=== PATIENT | female | born 1945 | race Caucasian/White ===

== ENCOUNTER 2020-12-04 13:49 | Inpatient (IN) | payer MEDICARE, OTHER, SELFPAY ==
[2020-12-04] VITALS (56 sets, daily range): BP systolic 103–171; BP diastolic 59–111; PULSE 60–107; RESP 6–25; TEMP 36.6; O2SAT 91–100; BMI 31.7
[2020-12-04] MEDS: heparin 5,000 unit/mL INJ 1 mL 4000 UNIT IVP (13:55)
[2020-12-04] MEDS: clopidogrel 300 mg Tablet 600 MG PO (13:55)
[2020-12-04] MEDS: morphine 4 mg/mL SDV 1 mL 6 MG IVP (13:57)
[2020-12-04] MEDS: ondansetron 2 mg/ML SDV 2 mL 4 MG IVP (13:57)
--- NOTE | 2020-12-04 13:58 | XACV_ITS ---
Ht: 163 cm Wt: 84 kg BSA: 1.98 m2 Gender: Female : 1945 Any Known Allergies: Iodine Exam Priority: Routine Procedure(s): Procedure Description: Diagnostic procedure Procedure Description: PCI procedure Procedure Description: Left Heart Catheterization Procedure Description: Drug Eluting Coronary Stent Procedure Description: PTCA Procedure Description: Miscellaneous Procedure Description: ACT Procedure Description: Coronary Angiography Diagnostic Cath Status: Emergency Diagnostic Findings * CX is a large vessel. It gives rise to 4 OM branches, no significant stenosis is seen. * There is a proximal LAD stent. Prior stent has a 40% instent restenosis. Mid Left Anterior Descending Coronary Artery: Severe 99% stenosis, MAREK: 1 flow. This is the culprit lesion for the STEMI. * RCA is a small vessel. Mid Right Coronary Artery: Severe 99% stenosis, MAREK: 0 flow. * LM has 0% stenosis. * Coronary angiography shows left dominance. PCI Status: Emergency PCI Indication: STEMI - Immediate PCI for STEMI Interventional Findings * We engaged the left main artery using XB 3.5 guide catheter. We predilated the stenosis using a 2.5 x 8 mm semicompliant balloon. This was followed by placement of 2.75 x 22 mm drug-eluting stent. We then used a 3.0 x 12 mm NC balloon to dilate to the in-stent restenosis and prior proximal stent. There was minimal in-stent restenosis after balloon dilation of the old stent. At this time final angiogram was performed that showed excellent stent expansion, no residual stenosis and MAREK-3 flow. Guidewire and guide catheter were removed. We then turned our attention to mid RCA stenosis. JR4 guide catheter was used to engage the right coronary artery. We used a 0.014 cougar guidewire to cross mid RCA stenosis. However stent could not be advanced as there was not enough support. We switched to AL 0.75 guide catheter. Guidewire was used to cross the stenosis and placed 2.5 x 12 mm resolute [place] HARMAN to mid RCA. Guidewire was removed and final angiogram was performed that showed excellent stent expansion, MAREK-3 flow and no residual stenosis. Guide catheter was removed. Femoral access sheath was sutured in place for removal later. Patient left the Pipe Organ Technician in a stable condition.. * Mid Left Anterior Descending Coronary Artery: 99% stenosis treated with AB TREK 2.50X8 RX BALLOON, MDT R HEATHER 2.75X22 HARMAN, and MDT NC EUPHORA RX [id number] BALLOON. 0% residual stenosis, MAREK: 3 flow. * Mid Right Coronary Artery: 99% stenosis treated with MDT R HEATHER 2.5X12 HARMAN. 0% residual stenosis, MAREK: 3 flow. Conclusions 1. There is severe coronary artery disease with two vessel disease. 2. Mid Left Anterior Descending Coronary Artery was treated with two Balloon and Drug Eluting Stent. 3. Mid Right Coronary Artery was treated with Drug Eluting Stent. Recommendations * Admit to CSU. * Aspirin and Plavix. * High intensity statin therapy. * Metoprolol and Lisinopril. * Order echocardiogram. Interventional RX Recommendation: PCI w/o planned CABG Diagnostic RX Recommendation: PCI w/o planned CABG Anticoagulation: Heparin Pressures Phase:Rest AO : 140 / 73 ( 103 ) @ 8:15:00 AM 177 / 64 ( 96 ) @ 8:20:00 AM 154 / 46 ( 81 ) @ 8:22:00 AM 104 / 69 ( 79 ) @ 8:54:00 AM 100 / 61 ( 80 ) @ 8:54:00 AM Clinical Evaluation EBL: 5mL-10mL Procedural Details Pre-Procedure Time Out. Identified patient by full name and date of as verbalized by the patient/guarantor. Does the consent match the physician's order: Yes. Accurate & Complete Informed Consent: N/A Emergent. Inpatient/Outpatient History & Physical on Chart: N/A Emergent. If H&P is completed, is and addenduem needed: N/A Emergent; If yes, is the addendum complete: N/A Emergent. Visualize and Verify Site with Patient/Guarantor: N/A. Relevant Radiology Images available: N/A Emergent. Pre-op teaching completed and patient verbalized understanding. The risks, benefits, and alternatives of sedation and/or procedure were discussed by physician. The patient agrees to continue. Procedure started. [facility] Clinical Fraility Score: 4: Vulnerable. Pipe Organ Technician Indications: ACS <= 24 hours. Chest Pain Symptom Assessment: Typical Angina Symptoms. Cardiovascular Instability: Yes, if yes, Persistant Ischemic Symptoms. Correct patient, site and procedure confirmed by cath team. Current diagnosis: STEMI. PERRLA. Strong, equal hand edi architect bilaterally. Lungs clear x 5 lobes. IV Site on Arrival: 18 gauge in the left anticubital. IV Fluids: 0.9% NaCl at KVO. 0 mL infused prior to propagator laborer. Pre Procedural Pulses: bilateral dorsalis pedis was 2+. Oxygen started at 2liters/min via nasal canula. bilateral groins was prepped with chloroprep then draped in the usual sterile fashion. Baseline sample Acquired. HR: 81 BPM. Physician arrived. Physician scrubbed in. Immediate Pre-Procedure Time Out. Correct Patient: N/A Emergent; Correct Procedure: N/A Emergent; Correct Site: N/A Emergent; Correct Patient Position: N/A Emergent; Correct Supplies: N/A Emergent; Dried Flammable Prep: N/A Emergent; Blood Products Available: N/A Emergent;. Lidocaine 1% infiltrated to the left groin. Current Diagnosis : STEMI. Arterial access obtained with micropuncture set. Sheath upsized to a 6 Fr. A 5 lithuanian JR4 catheter in over wire. Multiple views taken of right coronary artery. Catheter removed over the exchange wire. A 5 lithuanian JL4 catheter in over wire. Multiple views taken of left coronary artery. Catheter removed over the standard wire. 6 lithuanian XB 3.5 guide catheter was inserted over the wire. Bowie guidewire was advanced through the guide catheter to lesion in the mid LAD. Family updated. Inflation number : 1 A AB TREK 2.50X8 RX BALLOON was prepped and advanced across the Mid LAD , then inflated to 8 JOSE for 0:09 seconds. Inflation number: 2 The AB TREK 2.50X8 RX BALLOON was reinflated across the Mid LAD, to 12 JOSE for 0:25 seconds. Balloon out. Inflation Number : 3 A MDT R HEATHER 2.75X22 HARMAN -Lot Number# [id number] exp date 04/20/2022 was prepped and advanced across the Mid LAD. The stent was deployed at 14 JOSE for 0:26 seconds. Inflation number: 4 The stent balloon was then re-inflated across the Mid LAD to 12 JOSE for 0:15 seconds. Stent balloon out over wire. Results checked. Family updated. Inflation number : 5 A MDT NC EUPHORA RX 3.78V81BO BALLOON was prepped and advanced across the Mid LAD , then inflated to 16 JOSE for 0:21 seconds. Inflation number: 6 The MDT NC EUPHORA RX [id number] BALLOON was reinflated across the Mid LAD, to 18 JOSE for 0:16 seconds. Balloon out. Wire out. Guide catheter out. 6 lithuanian JR 4 guide catheter was inserted over the wire. Bowie guidewire was advanced through the guide catheter to lesion in the mid RCA. Wire out. Guide catheter out. Inventory is CRD 6FR AL .75 GUIDE. 6 lithuanian AL 0.75 guide catheter was inserted over the wire. Bowie guidewire was advanced through the guide catheter to lesion in the mid RCA. Inflation Number : 1 A MDT R HEATHER 2.5X12 HARMAN -Lot Number# [id number] exp date 08/07/2022 was prepped and advanced across the Mid RCA. The stent was deployed at 9 JOSE for 0:32 seconds. Results checked. Stent balloon out over wire. Wire out. Long sheath exchanged for short 6 fr sheath. ACT drawn. Results 218 seconds. Therapeutic limits - pre-heparin administration 90-150 seconds and monitoring heparin during a vascular procedure >250 seconds. Physician scrubbed out. Critical Trop resulted to Dr Ramirez. Trop 328. A Suture was successful obtaining hemostatsis at the Left Femoral artery insertion site. Sheath(s) sutured into position with 2-0 silk and sterile 4x4's and Op-site applied over the site. No oozing or signs and symptoms of hematoma noted. Arterial sheath flushed and connected to tranducer and pressure bag with heparinized saline. Post Procedure: Pulses reassessed and unchanged. PERRLA. Strong, equal hand edi architect bilaterally. No VTE prophylaxis required. Medication's Wasted: Lidocaine 1% = 12 mL. Medication's Wasted: Heparin = 2000 units. Total IV fluids: 100 mL. Contrast type used: Omnipaque 300 mgI/mL, 500 mL bottle. Post-op diagnosis: stemi. PCI Indication: STEMI. Complications: none. Estimated blood loss: 5mL-10mL. Procedure completed. Patient transferred by bed to 1st floor. Abril Jordan RT(R) was relieved by Trey Jenkins RRT as monitoring person. Access Site Site: Left Femoral artery Sheath Size: 6 Fr Hemostasis Method: Suture Hemostasis Success: Successful Procedure Medications Start: 2:06 PM Stop: 2:06 PM Medication: Versed Amount: 1 mg Route: I.V. Start: 2:07 PM Stop: 2:07 PM Medication: Versed Amount: 1 mg Route: I.V. Start: 2:15 PM Stop: 2:15 PM Medication: Heparin Amount: 4000 units Route: I.V. Start: 2:19 PM Stop: 2:19 PM Medication: Versed 1 mg and Fentanyl 25 mcg Amount: 1 Route: I.V. Start: 2:26 PM Stop: 2:26 PM Medication: Versed Amount: 1 mg Route: I.V. Start: 2:39 PM Stop: 2:39 PM Medication: Versed Amount: 1 mg Route: I.V. Start: 2:51 PM Stop: 2:51 PM Medication: Heparin Amount: 2000 units Route: I.V. Start: 2:52 PM Stop: 2:52 PM Medication: Versed Amount: 1 mg Route: I.V. Start: 3:01 PM Stop: 3:01 PM Medication: Heparin Amount: 1000 units Route: I.V. I, the attending physician, have reviewed and verified all procedure medications. Yes, all medications given per verbal order History/Risk Factors Hypertension: No Dyslipidemia: No Peripheral Arterial Disease (PAD): No Myocardial Infarction (NC): No Obesity: No Renal Disease: No Prior Interventions PCI: No CABG: No Valve Surgery: No Report Signatures Finalized by Gab Ramirez MD on 12/09/2020 07:04 PM
--- NOTE | 2020-12-04 13:58 | W.ED.CHESTPA ---
HPI - Chest Pain General: Chief Complaint: Chest Pain Stated Complaint: STEMI Time Seen by Provider: 12/04/20 13:58 History of Present Illness: HPI narrative: 75-year-old female presents via air [facility] with an acute acute ST elevation AL. She began having chest pain a few hours prior radiating into her back feel the EKG was transmitted to us clearly showed an ST elevation AL STEMI was called prior to arrival cath team in the ER along with Dr. Maya on patient's arrival. Interestingly patiently recently had cardiac clearance for a right knee arthroplasty cardiac evaluation prep preop was normal MD complaint: chest pain Onset (ago): hour(s) Prior episodes: No Onset: during rest Pain location: left chest Pain radiation: back Severity: severe Quality: crushing Relieving factors: nitroglycerin and rest Exacerbating factors: nothing Context: recent surgery Associated symptoms: Deny abdominal pain, diaphoresis, dyspnea, fever(s), leg edema, nausea, palpitations, sense of impending doom, syncope or vomiting Treatment prior to arrival: aspirin, nitroglycerin and oxygen Review of Systems Const: Denies: fever(s) or diaphoresis ENMT: Denies: throat pain, ear or mastoid pain, nasal discharge or nasal congestion Card: Denies: palpitations or syncope Resp: Denies: dyspnea GI: Denies: abdominal pain, nausea or vomiting : Denies: flank pain, difficulty voiding, dysuria, urinary frequency or urinary urgency Skin/Breast: Denies: rash or pruritus Physical Exam Const: GENERAL APPEARANCE: cooperative and comfortable ORIENTATION/CONSCIOUSNESS: Yes awake, Yes oriented to person, Yes oriented to place and Yes oriented to time HENMT: COMMON NORMALS: normocephalic, atraumatic and hearing grossly normal bilaterally HEAD & SCALP: normocephalic and atraumatic Neck/C-Spine: COMMON NORMALS: no JVD Resp: COMMON NORMALS: normal respiratory effort, No retractions, No use of accessory muscles and clear to auscultation bilaterally AUSCULTATION: clear to auscultation bilaterally Cardio: COMMON NORMALS: no JVD, regular rate, regular rhythm and No murmurs present (Cardio) RATE: regular rate RHYTHM: regular rhythm GI: COMMON NORMALS: Soft to palpation and No hepatosplenomegaly present AUSCULTATION: Yes normoactive bowel sounds PALPATION: Yes Soft to palpation, No Tenderness to palpation present (GI), No Guarding due to palpation present (GI) and Yes No hepatosplenomegaly present Extremity: COMMON NORMALS: normal to inspection, capillary refill normal, no clubbing, cyanosis or edema, no calf tenderness and no pedal edema Neuro: SENSORIUM/ORIENTATION: Yes oriented to person, Yes oriented to place and Yes oriented to time Course Vital Signs: Vital signs: Vital Signs Pulse Rate 60 12/04/20 13:57 Respiratory Rate 14 12/04/20 13:57 Blood Pressure 171/100 12/04/20 13:57 Pulse Oximetry 99 12/04/20 13:57 MDM - Chest Pain MDM Narrative: Medical decision making narrative: Dr. Maya was in the department the patient arrived to the ED repeat EKG shows obvious ST elevation AL in the inferior and in the anterior leads. Due to her recent orthopedic surgery also going to get a D-dimer on her. Patient taken emergently to the General Education Instructor given heparin Plavix and given aspirin previously she is also given IV nitro drip in the emergency room. Discharge Plan Discharge Patient Disposition: Admitted As Inpatient Clinical Impression: ST elevation myocardial infarction (STEMI) Condition: Stable Coding Level of Care Code ED Soil Field Technician for Darío Pizano
--- NOTE | 2020-12-04 14:01 | ECG_ITS ---
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: : 1945 Requested By: Wicho Jett Order Number: [id number] Reading MD: YUNIEL JEONG Measurements Intervals [place] Rate: 63 P: 73 [place]: 152 QRS: 34 QRSD: 87 T: 80 QT: 437 QTc: 449 Interpretive Statements SINUS RHYTHM WITH OCCASIONAL VENTRICULAR PREMATURE COMPLEXES LOW QRS VOLTAGE IN PRECORDIAL LEADS [QRS DEFLECTION < 1.0 mV IN CHEST LEADS] ANTERIOR MYOCARDIAL INFARCTION , POSSIBLY ACUTE [40+ ms Q WAVE AND/OR ST/T ABNORMALITY IN V3/V4] INFERIOR MYOCARDIAL INFARCTION , POSSIBLY ACUTE [40+ ms Q WAVE AND/OR ST/T ABNORMALITY IN II/aVF] ST ELEVATION, CONSIDER LATERAL INJURY [MARKED ST ELEVATION W/O NORMALLY INFLECTED T WAVE IN I/aVL/V5/V6] ACUTE ND No previous ECG available for comparison Electronically Signed On 12-04-2020 19:57:31 LABORER FILTER PLANT by YUNIEL JEONG [id number] f
--- NOTE | 2020-12-04 14:13 | PC.NURSE ---
PT PRESENTS TO ED WITH AIR EVAC FOR CHEST PAIN. PT WAS AT WORK WHEN SHE STARTED HAVING CP AT 1230. PT ARRIVED ED CAOX4. EMS GAINED IV ACCESS. ADMINISTERED 324MG ASA, 3 SL NITRO, 2 MG MORPHINE, 4MG ZOFRAN, ARRIVED ON NITRO DRIP. MACHINE CLOTHING REPLACER AT THE BEDSIDE ON ARRIVAL. PT COMPLAINING OF CHEST PAIN WITH SOB.
[2020-12-04 14:20] LABS: Basophils % 0.4 %; Eosinophils # 0.1 10^3/uL (0.0-0.8); Eosinophils % 0.6 %; Hematocrit 43.4 % (37.0-47.0); Hemoglobin 13.9 g/dL (11.5-15.3); Lymphocytes # 0.9 10^3/uL (0.8-4.8); Lymphocytes % 9.6 %; Mean Corpuscular Hemoglobin 29.1 pg (28.0-34.0); Mean Corpuscular Volume 90.8 fL (81-99); Monocytes # 0.5 10^3/uL (0.2-0.9); Monocytes % 5.1 %; Neutrophils # 7.79 10^3/uL (1.8-7.7); Neutrophils % 84.1 %; Nucleated Red Blood Cells % 0 %; Platelet Count 289 10^3/cmm (130-400); Red Blood Count 4.78 10^6/uL (4.1-5.3); Red Cell Distribution Width 12.4 % (12.1-15.1); White Blood Count 9.3 10^3/uL (4.0-10.0)
[2020-12-04 14:38] LABS: INR 0.98 (0.8-1.2)
[2020-12-04 14:41] LABS: D Dimer 2.15 ug/mIFEU (0-0.59)
[2020-12-04 14:43] LABS: Alanine Aminotransferase 10 U/L (0-33); Albumin Level 4.2 g/dL (3.5-5.2); Alkaline Phosphatase 85 IU/L (35-105); Anion Gap 17.7 (5-19); Aspartate Amino Transferase 20 U/L (0-32); Blood Urea Nitrogen 14 mg/dL (8-23); Calcium 9.4 mg/dL (8.5-10.5); Carbon Dioxide 23 mmol/L (22-29); Chloride 100 mmol/L (98-107); Globulin 2.2 g/dL (1.3-4.6); Glucose 130 mg/dL (65-115); Osmolality Calculated 286 mOsm/kg (285-295); Potassium 3.7 mmol/L (3.5-5.1); Sodium 137 mmol/L (136-145); Total Bilirubin 0.4 mg/dL (0.15-1.2); Total Protein 6.4 g/dL (6.6-8.7)
[2020-12-04 14:59] LABS: Troponin(5th) Baseline 328 ng/L (0-10)
--- NOTE | 2020-12-04 15:44 | PM.HP ---
Providers/Chief Complaint Admitting Physician: Gab Ramirez M.D Chief Complaint: STEMI History of Present Illness Deniz Low is a 75 year old female hypertension, CAD status post PCI of proximal LAD several years ago presented with 2 to 3 hours of severe substernal chest pain radiating to both arms and back. According to patient she was at work when she started noticing this pain. She had Covid vaccination performed a few hours earlier today. EMS performed EKG that showed ST elevations in and inferior leads. Brought to [facility] via air med transfer and was taken to the Station Installer. Coronary angiography showed thrombotic occlusion of mid LAD. There was also a 95% stenosis in mid RCA which was a small to medium sized vessel.Patient underwent successful revascularization of mid LAD and RCA with HARMAN x2. Her chest pain resolved. EKG improved. Patient had a recent knee replacement of the right knee 4 weeks ago. Review of Systems Narrative: CONSTITUTIONAL: No fever chills weight loss or gain or night sweats. [] HEENT: Normocephalic, atraumatic.[] RESPIRATORY: No cough, sputum, hemoptysis or wheezing.[] CARDIOVASCULAR:Severe shortness of breath, chest pain, no PND, orthopnea, lower extremity edema, presyncope or syncope. [] GI: no nausea vomiting diarrhea. [] DIVINE HEALER: No numbness, tingling, weakness or loss of function in any part of the body. [] MUSCULOSKELETAL: No knee or joint pain or rashes. [] Medications/Allergies Home Medications Medication Instructions Recorded Confirmed Last Taken Type amlodipine 10 mg PO BEDTIME 12/04/20 12/04/20 12/03/20 21:00 History gabapentin 300 mg PO BEDTIME 12/04/20 12/04/20 12/02/20 21:00 History hydrocodone-acetaminophen 1 tab PO Q6H PRN 12/04/20 12/04/20 12/03/20 21:00 History losartan 50 mg PO BID 12/04/20 12/04/20 12/03/20 21:00 History spironolactone 25 mg PO DAILY PRN 12/04/20 12/04/20 11/30/20 10:00 History zolpidem 5 mg PO BEDTIME 12/04/20 12/04/20 12/03/20 21:00 History Allergies Allergy/AdvReac Type Severity Reaction Status Date / Time codeine Allergy Unknown Verified 12/04/20 13:56 Penicillins Allergy Unknown Verified 12/04/20 13:56 shrimp Allergy Unknown Verified 12/04/20 13:56 PFSH Acute PFSH: Medical History (Updated 12/04/20 @ 19:28 by Gab Ramirez M.D) Coronary artery disease Hypertension Surgical History (Updated 12/04/20 @ 19:17 by Gab Ramirez M.D) S/P total knee replacement Social History (Updated 12/04/20 @ 19:18 by Gab Ramirez M.D) Marital status: Vitals/I&O/Wt Last Vital Signs Temp 97.8 F 12/04/20 14:05 Pulse 60 12/04/20 14:05 Resp 14 12/04/20 14:05 BP 171/100 12/04/20 14:05 Pulse Ox 99 12/04/20 14:05 Weight last 48 hrs Weight 185 lb Physical Exam Narrative: EXAM NARRATIVE: GENERAL: Patient is alert, awake and oriented x3. [] NECK: No jugular vein distension. [] HEENT: No cyanosis. No icterus. No pallor. [] HEART: Regular S1 and S2. No murmur, rub or gallop. [] LUNGS: Clear to auscultate bilaterally. [] ABDOMEN: Soft, nontender and nondistended. Positive bowel sounds. No guarding, rebound or tenderness. [] CENTRAL NERVOUS SYSTEM: Grossly nonfocal. [] EXTREMITIES: Lower extremities with no edema bilaterally. Pulses palpable in the lower extremities, both dorsalis pedis and posterior tibial. [] Data : 12/04/20 14:00 12/04/20 14:00 A&P Assessment and plan (1) ST elevation myocardial infarction (STEMI): Status: Acute (2) Coronary artery disease: Status: Acute (3) Hypertension: Status: Acute Patient had acute anterior wall ST elevation CA and underwent successful revascularization with HARMAN x 1 to LAD and HARMAN X 1 to RCA. Admit to CSU Continue aspirin and plavix for atleast 1 year High intensity statin therapy Metoprolol and Lisinopril Order echocardiogram Attestations Medical Necessity Statement*: Care expected to cross 2 midnights. Patient presented with Acute ST elevation CA s/p successful revascularization. Coding Level of Care Code Acute School Vocational Educator for Darío Fwd Diagnoses ST elevation myocardial infarction (STEMI) I21.3 Coronary artery disease I25.10 Hypertension I10
--- NOTE | 2020-12-04 16:01 | ECG_ITS ---
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: : 1945 Requested By: Wicho Jett Order Number: [id number] Reading MD: YUNIEL JEONG Measurements Intervals [place] Rate: 93 P: 262 [place]: 217 QRS: 223 QRSD: 135 T: 50 QT: 431 QTc: 539 Interpretive Statements SINUS RHYTHM WITH FIRST DEGREE AV BLOCK INTRAVENTRICULAR CONDUCTION DELAY [130+ ms QRS DURATION] POSSIBLE RIGHT VENTRICULAR HYPERTROPHY [SOME/ALL OF: PROMINENT R IN V1, LATE TRANSITION, RAD, CATRACHITA, SSS] INFERIOR MYOCARDIAL INFARCTION [40+ ms Q WAVE AND/OR ST/T ABNORMALITY IN II/aVF], POSSIBLY ACUTE ANTEROLATERAL MYOCARDIAL INFARCTION [40+ ms Q WAVE IN I/aVL/V3-V6], POSSIBLY ACUTE ACUTE SC Compared to ECG 12/04/2020 13:52:59 First degree AV block now present Intraventricular conduction delay now present Ventricular premature complex(es) no longer present ST (T wave) deviation no longer present Myocardial infarct finding still present Electronically Signed On 12-04-2020 20:00:29 PRESS OPERATOR APPRENTICE by YUNIEL JEONG [id number]
[2020-12-04 17:33] LABS: Troponin 5 2HR 1775 ng/L (0-10); Troponin 5 2HR Delta 1447 ABS# (0-10)
--- NOTE | 2020-12-04 17:55 | ECG_ITS ---
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: : 1945 Requested By: Gab Ramirez Order Number: [id number] Reading MD: YUNIEL JEONG Measurements Intervals [place] Rate: 87 P: [place]: QRS: 201 QRSD: 126 T: 39 QT: 419 QTc: 505 Interpretive Statements SinusRHYTHM POSSIBLE RIGHT VENTRICULAR HYPERTROPHY [SOME/ALL OF: PROMINENT R IN V1, LATE TRANSITION, RAD, CATRACHITA, SSS] INFERIOR MYOCARDIAL INFARCTION [40+ ms Q WAVE AND/OR ST/T ABNORMALITY IN II/aVF], PROBABLY OLD ANTEROLATERAL MYOCARDIAL INFARCTION [40+ ms Q WAVE IN I/aVL/V3-V6], POSSIBLY old Compared to ECG 12/04/2020 16:33:23 No significant change Electronically Signed On 12-04-2020 19:55:31 BONE CHAR PULLER by YUNIEL JEONG [id number]
--- NOTE | 2020-12-04 18:26 | PC.NURSE ---
noted Ekg changes on tele patient assessed and reports 4/[address] goldsmith notifed and instructions to obtain ekg Dr goldsmith on unit to assess patient verbal instructions to give fentynal 25 mcg ivp x1 for pain and continue to monitor Dr goldsmith explained to patient is experiencing re-profusion pain ekg dose not show any acut infarct patient verbalized understanding.
[2020-12-04 19:02] LABS: Partial Thromboplastin Time 56.2 SECONDS (23.9-36.7)
[2020-12-04] MEDS: fentaNYL 50 mcg/mL INJ 2mL 25 MCG IVP (19:11)
--- NOTE | 2020-12-04 19:17 | PC.NURSE ---
NURSE NOTE: SPOKE WITH DR. MADDOX AT THIS TIME. PTT 56.[address] LOUIE STATED OK TO PULL CARDIAC SHEATH AT THIS TIME.
[2020-12-04 20:40] LABS: Troponin 5 6HR 2185 ng/L (0-10); Troponin 5 6HR Delta 1857 ng/L (0-12)
[2020-12-04] MEDS: HYDROcodone-acetaminophen 10-325 mg Tablet 1 TAB PO (20:46)
[2020-12-04] MEDS: atorvastatin 40 mg Tablet PO (20:47)
[2020-12-04] MEDS: metoprolol tartrate 25 mg Tablet PO (23:02)
[2020-12-04] MEDS: temazepam 15 mg Capsule PO (23:02)
[2020-12-05] VITALS (11 sets, daily range): BP systolic 120–153; BP diastolic 72–82; PULSE 60–76; RESP 12–24; TEMP 36.1–36.7; O2SAT 93–100
[2020-12-05] MEDS: HYDROcodone-acetaminophen 10-325 mg Tablet 1 TAB PO ×3 (02:49→20:49)
[2020-12-05] MEDS: sodium chloride 0.9% 1,000 ML 100 ML IV (02:50)
--- NOTE | 2020-12-05 02:56 | PC.NURSE ---
NURSE NOTE: SHEATH REMOVAL: AT 1940 LAST EVENING, SHEATH REMOVED FROM LEFT GROIN SITE. PRESSURE HELD TO SITE FOR 20 MINUTES. HEMATOMA FORMED DURING SHEATH REMOVAL MEASURING 10CM BY 6CM IN DIAMETER. PT REFUSED TO ALLOW US TO APPLY ADDITIONAL PRESSURE ORDERED PER DR. MADDOX. PT APPLYING PRESSURE INTERMITTENTLY HERSELF AND THIS NURSE REPEATEDLY CHECKED SITE EVERY 5-10 MIN. UNTIL HEMATOMA SOFTENED. CURRENTLY LESS THAN 3CM. PT UP AT 0215. WALKED AROUND ROOM WITHOUT DIFFCULTY OR C/O CP, DIZZINESS, OR SOB. C/O PAIN IN RIGHT KNEE D/T POST KNEE REPLACEMENT X3 WEEKS AGO. PAIN MEDICATION GIVEN ORDERED. PT MOVES ALL EXTREMITIES AND FOLLOWS COMMANDS. ALL VS AND ASESSMENTS CHARTED. CURRENTLY RESTING WITH EYES CLOSED; RESP EVEN AND NON LABORED. NO DISTRESS NOTED AT THIS TIME.
--- NOTE | 2020-12-05 07:00 | USCV_ITS ---
Deniz Low Age: 75 Gender: F : 1945 Exam Date: 12/05/2020 12:49 Ordering Phys: Gab Ramirez M.D ([email or web address]) Technologist: Natividad De La Cruz Exam Location: [facility] – [place], [place] Indication: STEMI BP: 152 / 82 HR: 67 Rhythm: Sinus Technical Quality: Adequate MEASUREMENTS (Male / Female) Normal Values 2D ECHO LV Diastolic Diameter PLAX 2.8 cm 4.2 - 5.9 / 3.9 - 5.3 cm LV Systolic Diameter PLAX 2.4 cm LV Chamber Size 3.0 cm IVS Diastolic Thickness 1.5 cm 0.6 - 1.0 / 0.6 - 0.9 cm IVS Systolic Thickness 1.4 cm LVPW Diastolic Thickness 2.1 cm 0.6 - 1.0 / 0.6 - 0.9 cm LVPW Systolic Thickness 1.8 cm RV Chamber Size 3.3 cm LVOT Diameter 2.1 cm LV Ejection Fraction 2D Teich 37.0 % LV Ejection Fraction MOD 2C 43.5 % LV Ejection Fraction 2C AL 42.5 % LA Diameter 2.8 cm LA Width 4.3 cm LA Height 5.8 cm RA Width 3.2 cm RA Height 4.0 cm Aorta at Sinotubular Diameter 3.1 cm M-MODE LV Diastolic Diameter MM 4.4 cm 4.2 - 5.9 / 3.9 - 5.3 cm LV Systolic Diameter MM 2.8 cm LV Ejection Fraction MM Teich 67.2 % IVS Diastolic Thickness MM 1.3 cm 0.6 - 1.0 / 0.6 - 0.9 cm IVS Systolic Thickness MM 1.4 cm LVPW Diastolic Thickness MM 1.6 cm 0.6 - 1.0 / 0.6 - 0.9 cm LVPW Systolic Thickness MM 2.0 cm Aortic Annulus Diameter 2.8 cm LA Ao Ratio MM 1.0 MV E Point Septal Separation 0.9 cm DOPPLER AV Peak Velocity 139.0 cm/s LVOT Peak Velocity 96.0 cm/s AV Area Cont Eq vti 2.6 cm squared AV Area Cont Eq pk 2.3 cm squared MV Area PHT 3.0 cm squared Mitral E to A Ratio 0.6 MV E' Velocity 34.5 cm/s Mitral E to MV E' Ratio 13.8 Mitral E to LV E' Lateral Ratio 15.9 Mitral E to LV E' Septal Ratio 12.5 TR Peak Velocity 191.5 cm/s TR Peak Gradient 14.7 mmHg TV Peak E Velocity 53.0 cm/s Right Atrial Pressure 3.0 mmHg Pulmonary Artery Systolic Pressu 17.7 mmHg PV Peak Velocity 85.0 cm/s RV Acceleration Time 0.1 s RV Ejection Time 0.4 s RV AcT/ET 0.3 FINDINGS Left Ventricle This is technically limited study. Normal left ventricular size. LV systolic function is severely reduced with EF of 20 to 25%. There is akinesis of mid to apical anterior wall, apical wall and mid to apical inferioseptal and apical inferior sifuentes. Grade 1 diastolic dysfunction is seen. Right Ventricle The right ventricle is normal in size and function. Right Atrium The right atrium is normal in size. Left Atrium The left atrium is normal in size. Mitral Valve Structurally normal mitral valve without significant stenosis or prolapse. There is no mitral regurgitation. Aortic Valve Not well-visualized. No significant aortic stenosis. There is no aortic regurgitation. Tricuspid Valve Grossly normal. Insufficient TR jet to calculate RVSP. Pulmonic Valve Not well-visualized. There is no pulmonic regurgitation. Pericardium Normal pericardium without effusion. Aorta Normal ascending aorta dimension. CONCLUSIONS This is technically limited study. LV systolic function is severely reduced with EF of 20 to 25%. There is akinesis of mid to apical anterior wall, apical wall and mid to apical inferoseptal and apical inferior sifuentes. Grade 1 diastolic dysfunction is present. No significant valvular heart disease is noted. Compared to prior echocardiogram from 07/05/2014, LV systolic function is severely reduced now. Gab Ramirez MD (Electronically Signed) Final Date: 09 December 2020 13:02 S
[2020-12-05 07:01] LABS: Anion Gap 11.5 (5-19); Blood Urea Nitrogen 29 mg/dL (8-23); Carbon Dioxide 32 mmol/L (22-29); Chloride 98 mmol/L (98-107); Glucose 91 mg/dL (65-115); Osmolality Calculated 291 mOsm/kg (285-295); Potassium 3.5 mmol/L (3.5-5.1); Sodium 138 mmol/L (136-145)
[2020-12-05] MEDS: lisinopril 10 mg Tablet PO (09:06)
[2020-12-05] MEDS: aspirin 81 mg EC Tablet PO (09:06)
[2020-12-05] MEDS: clopidogrel 75 mg Tablet PO (09:06)
[2020-12-05] MEDS: heparin 5,000 unit/mL INJ 1 mL 5000 UNIT SUBCUT (09:07)
[2020-12-05] MEDS: metoprolol tartrate 25 mg Tablet PO ×2 (09:12→20:49)
[2020-12-05] MEDS: perflutren protein-a microsphr 0.22 mg/mL SDV 3 mL IV (13:17)
[2020-12-05 14:13] LABS: Basophils % 0.2 %; Eosinophils # 0.1 10^3/uL (0.0-0.8); Eosinophils % 1.4 %; Hematocrit 36.6 % (37.0-47.0); Hemoglobin 11.4 g/dL (11.5-15.3); Lymphocytes # 0.7 10^3/uL (0.8-4.8); Lymphocytes % 12.1 %; Mean Corpuscular HGB Conc 31.1 g/dL (30.0-36.0); Mean Corpuscular Hemoglobin 29.2 pg (28.0-34.0); Mean Corpuscular Volume 93.6 fL (81-99); Mean Platelet Volume 9.5 fL (7.4-10.4); Monocytes # 0.6 10^3/uL (0.2-0.9); Monocytes % 9.8 %; Neutrophils # 4.41 10^3/uL (1.8-7.7); Neutrophils % 76.2 %; Nucleated Red Blood Cells % 0 %; Platelet Count 214 10^3/cmm (130-400); Red Blood Count 3.91 10^6/uL (4.1-5.3); Red Cell Distribution Width 12.8 % (12.1-15.1); White Blood Count 5.8 10^3/uL (4.0-10.0)
[2020-12-05] MEDS: sodium chloride 0.9% 1,000 ML 75 ML IV (14:37)
[2020-12-05 18:17] LABS: Anion Gap 8.8 (5-19); Blood Urea Nitrogen 9 mg/dL (8-23); Calcium 8.3 mg/dL (8.5-10.5); Carbon Dioxide 26 mmol/L (22-29); Chloride 107 mmol/L (98-107); Glucose 130 mg/dL (65-115); Osmolality Calculated 286 mOsm/kg (285-295); Potassium 3.8 mmol/L (3.5-5.1); Sodium 138 mmol/L (136-145)
--- NOTE | 2020-12-05 19:47 | PC.NURSE ---
Dr goldsmith on unit to check on patient instructions given to stop iv fluids
[2020-12-05] MEDS: atorvastatin 40 mg Tablet PO (20:49)
[2020-12-05] MEDS: temazepam 15 mg Capsule PO (20:49)
--- NOTE | 2020-12-05 20:51 | PM.PN ---
Subjective Subjective: Interval history: Patient is doing well. No complaints of chest pain, shortness of breath or palpitations. She feels fatigue.Morning creatinine was 2.2, IV fluids were continued, however evening lab shows creatinine is normal. Likely prior creatinine of 2.2 was a lab error. Vitals/I&O/Wt Last Vital Signs Temp 98 F 12/05/20 20:00 Pulse 76 12/05/20 20:00 Resp 24 H 12/05/20 20:00 BP 139/76 12/05/20 20:00 Pulse Ox 93 12/05/20 20:00 12/05/20 12/05/20 12/05/20 06:59 14:59 22:59 Intake Total 100 / 100 1026.667 / 1026.667 360 / 1386.667 Balance 100 / -350 1026.667 / 1026.667 360 / 1386.667 Weight last 48 hrs Weight 185 lb Physical Exam Narrative: EXAM NARRATIVE: GENERAL: Patient is alert, awake and oriented x3. [] NECK: No jugular vein distension. [] HEENT: No cyanosis. No icterus. No pallor. [] HEART: Regular S1 and S2. No murmur, rub or gallop. [] LUNGS: Clear to auscultate bilaterally. [] ABDOMEN: Soft, nontender and nondistended. Positive bowel sounds. No guarding, rebound or tenderness. [] CENTRAL NERVOUS SYSTEM: Grossly nonfocal. [] EXTREMITIES: Lower extremities with no edema bilaterally. Pulses palpable in the lower extremities, both dorsalis pedis and posterior tibial. [] Data : 12/05/20 14:03 12/05/20 17:37 A&P Assessment and plan (1) ST elevation myocardial infarction (STEMI): Status: Acute (2) Coronary artery disease: Status: Acute (3) Hypertension: Status: Acute Patient had acute anterior wall ST elevation IL and underwent successful revascularization with HARMAN x 1 to LAD and HARMAN X 1 to RCA. LVEF is severely reduced. Stop IV fluids Continue aspirin and plavix for atleast 1 year High intensity statin therapy Metoprolol and Lisinopril If patient stays stable by tomorrow, will likely discharge with follow up as office. Will need repeat echo at 40 days to assess for need for ICD Attestations Medical Necessity Statement*: Care expected to cross 2 midnights. Patient had acute ST elevation IL s/p successful revascularization with HARMAN x 2. Coding Level of Care Code Acute Senior Training Specialist for Darío Fwd Diagnoses ST elevation myocardial infarction (STEMI) I21.3 Coronary artery disease I25.10 Hypertension I10
--- NOTE | 2020-12-05 22:23 | PC.NURSE ---
NURSE NOTE: PT ALERT AND ORIENTED X4; MOVES ALL EXTREMITIES AND FOLLOWS COMMANDS. UAL-C/O PAIN IN RIGHT KNEE = 10/10, MEDICATION GIVEN ORDERED AND WAS EFFECTIVE PER PATIENT. ALL VS AND ASSESSMENTS CHARTED. NO DISTRESS NOTED AT THIS TIME. RESTING IN BED. WILL CONTINUE TO MONITOR.
[2020-12-06 03:40] VITALS: BP 129/72; PULSE 74; RESP 19; TEMP 36.8; O2SAT 97
[2020-12-06] MEDS: ALPRAZolam 0.25 mg Tablet PO (03:42)
[2020-12-06] MEDS: HYDROcodone-acetaminophen 10-325 mg Tablet 1 TAB PO (03:42)
[2020-12-06 04:25] LABS: Anion Gap 9.7 (5-19); Blood Urea Nitrogen 8 mg/dL (8-23); Calcium 8.4 mg/dL (8.5-10.5); Carbon Dioxide 25 mmol/L (22-29); Chloride 109 mmol/L (98-107); Glucose 108 mg/dL (65-115); Osmolality Calculated 289 mOsm/kg (285-295); Potassium 3.7 mmol/L (3.5-5.1); Sodium 140 mmol/L (136-145)
[2020-12-06 05:38] VITALS: PULSE 66
[2020-12-06 07:00] VITALS: BP 136/82; PULSE 70; RESP 15; TEMP 35.7; O2SAT 99
--- NOTE | 2020-12-06 08:38 | PM.DCS ---
Discharge Providers Date of Admission: 12/04/20 15:36 Date of Discharge: December 06, 2020 Attending Provider at Admission: Gab Ramirez M.D Attending Provider at Discharge: Gab Ramirez M.D Diagnoses at Discharge Discharge Diagnosis (1) ST elevation myocardial infarction (STEMI): Permanent problem details: S/P successful revascularization (2) Coronary artery disease: Status: Acute (3) Hypertension: Status: Acute Reason for Visit Reason for Visit: STEMI Brief History: 75 year old female hypertension, CAD status post PCI of proximal LAD several years ago presented with 2 to 3 hours of severe substernal chest pain radiating to both arms and back. According to patient she was at work when she started noticing this pain. She had Covid vaccination performed a few hours earlier today. EMS performed EKG that showed ST elevations in anterior and inferior leads. Brought to [facility] via air med transfer and was taken to the [facility]. Hospital Course Hospital Course 75 year old female hypertension, CAD status post PCI of proximal LAD several years ago presented with 2 to 3 hours of severe substernal chest pain radiating to both arms and back. According to patient she was at work when she started noticing this pain. She had Covid vaccination performed a few hours earlier today. EMS performed EKG that showed ST elevations in anterior and inferior leads. Brought to [facility] via air med transfer and was taken to the [facility]. Coronary angiography showed thrombotic occlusion of mid LAD. There was also a 95% stenosis in mid RCA which was a small to medium sized vessel. Patient underwent successful revascularization of mid LAD and RCA with HARMAN x2. Her chest pain resolved. EKG improved. Patient had a recent knee replacement of the right knee 4 weeks ago. Echocardiogram revealed severely reduced LV systolic function with EF of 40 to 45%. Patient stayed in the hospital and was stable. She was put on aspirin and Plavix. She was also on lisinopril, metoprolol and high intensity statin therapy. She was discharged in a stable condition. Plan will be to perform echocardiogram at 40 days to assess need for ICD. Physical Exam Narrative: EXAM NARRATIVE: GENERAL: Patient is alert, awake and oriented x3. [] NECK: No jugular vein distension. [] HEENT: No cyanosis. No icterus. No pallor. [] HEART: Regular S1 and S2. No murmur, rub or gallop. [] LUNGS: Clear to auscultate bilaterally. [] ABDOMEN: Soft, nontender and nondistended. Positive bowel sounds. No guarding, rebound or tenderness. [] CENTRAL NERVOUS SYSTEM: Grossly nonfocal. [] EXTREMITIES: Lower extremities with no edema bilaterally. Pulses palpable in the lower extremities, both dorsalis pedis and posterior tibial. [] Discharge Data Data Completed and Pending: Pending at discharge Category Date Time Status MANAGER ASSESSMENT request for service Stat Exams 12/04/20 13:58 Taken CV echo wo/w cont rast [id number] Routine Ultrasound 12/05/20 07:00 Taken US/CV paperwork R outine Ultrasound 12/05/20 Taken Labs from last 24 hours 12/06/20 12/05/20 12/05/20 03:36 17:37 14:03 WBC 5.8 RBC 3.91 L Hgb 11.4 L Hct 36.6 L MCV 93.6 MCH 29.2 MCHC 31.1 RDW 12.8 Plt Count 214 MPV 9.5 Neut % (Auto) 76.2 Lymph % (Auto) 12.1 [place] % (Auto) 9.8 Eos % (Auto) 1.4 Baso % (Auto) 0.2 Neut # (Auto) 4.41 Lymph # (Auto) 0.7 L [place] # (Auto) 0.6 Eos # (Auto) 0.1 Baso # (Auto) 0.0 Nucleated RBC % (a uto) 0 Nucleated RBCs # 0.0 Sodium 140 138 Potassium 3.7 3.8 Chloride 109 H 107 Carbon Dioxide 25 26 Anion Gap 9.7 8.8 BUN 8 9 Creatinine 0.5 0.6 GFR Calculation Not Reportable Not Reportable Glucose 108 130 H Calculated Osmolal ity 289 286 Calcium 8.4 L 8.3 L Vitals: Last Vital Signs Temp 96.2 F L 12/06/20 07:00 Pulse 70 12/06/20 07:00 Resp 15 12/06/20 07:00 BP 136/82 12/06/20 07:00 Pulse Ox 99 12/06/20 07:00 Discharge Plan Discharge Patient Disposition: Home Condition: Stable Prescriptions: New atorvastatin 40 mg Tablet 40 mg PO BEDTIME Qty: 90 RF: 3 clopidogrel 75 mg Tablet 75 mg PO DAILY Qty: 90 RF: 3 aspirin 81 mg Tablet,Delayed Release (Dr/Ec) 81 mg PO DAILY Qty: 90 RF: 3 lisinopril 10 mg Tablet 20 mg PO DAILY Qty: 90 RF: 3 metoprolol tartrate 25 mg Tablet 25 mg PO BID@0900,2100 Qty: 120 RF: 3 Continued hydrocodone-acetaminophen 10-325 mg tablet 1 tab PO Q6H PRN (Reason: pain) RF: 0 spironolactone 25 mg Tablet 25 mg PO DAILY PRN (Reason: swelling) RF: 0 zolpidem 5 mg tablet 5 mg PO BEDTIME RF: 0 gabapentin 100 mg capsule 300 mg PO BEDTIME RF: 0 Discontinued losartan 50 mg Tablet 50 mg PO BID RF: 0 amlodipine 10 mg tablet 10 mg PO BEDTIME RF: 0 Discharge Orders: Discharge Order (Routine); Ordered 12/06/20 Ordered By: Gab Ramirez Referrals: Gab Ramirez M.D [Physician] - 01/07/21 3:30 pm (You have a cardiology followup with Dr. Ramirez at [facility] on at 3:30pm) Nadia Herbert FNP [Nurse Practitioner] - 12/17/20 8:30 am (You have a post procedure followup with ASTON Miller at [facility] on December 17 at 8:30am) Discharge Diet: Cardiac Discharge Activity: Increase activity as tolerated Patient Instructions: Metoprolol (By mouth), Lisinopril (By mouth), Aspirin (By mouth), Atorvastatin (By mouth), Clopidogrel (By mouth), Myocardial Infarction (DC), Coronary Angioplasty (DC), Post Angiogram Home Care Instructions, Post Heart Attack Stoplight, Left Heart Catheterization (DC) Activity Restrictions/Additional Instructions: Do not lift more than 5 pounds of weight for the next 5 days Discharge Attestations Time Spent in Discharge Care*: greater than 30 min Quality Metrics Clinical Quality Measures During this hospital stay, did patient experience: None Coding Level of Care Code Acute Sheet Metal Insulator for Darrelg Fwd Diagnoses ST elevation myocardial infarction (STEMI) I21.3 Coronary artery disease I25.10 Hypertension I10
[2020-12-06] MEDS: aspirin 81 mg EC Tablet PO (09:18)
[2020-12-06] MEDS: clopidogrel 75 mg Tablet PO (09:19)
[2020-12-06] MEDS: metoprolol tartrate 25 mg Tablet PO (09:21)
[2020-12-06] MEDS: lisinopril 10 mg Tablet PO (09:21)
[2020-12-06 09:57] VITALS: BP 136/82; PULSE 70; RESP 15; TEMP 35.7; O2SAT 99
[2020-12-06 10:59] VITALS: BP 141/80; PULSE 76; RESP 14; TEMP 37; O2SAT 88
--- NOTE | 2020-12-06 11:55 | PC.NURSE ---
pt received plavix from [facility] (meds to beds).pt states she has all other meds available at home.discharge instructions given and explained.pt verb understanding of instructions.discharged via w/c to exit at this time.spouse to drive pt home.
== END 2020-12-06 11:55 | disposition home or self-care (01) | DRG 247 ==
LOC: ER 13:58 → CCL 13:59 → CSU 15:37
PROVIDERS: Admitting Provider Internal Medicine; Emergency Provider Family Medicine; Visit Provider Internal Medicine
PROC: 027135Z Dilation of Coronary Artery, Two Arteries with Two Drug-eluting Intraluminal Devices, Percutaneous Approach (ICD-10-PCS; principal; 2020-12-04 14:00)
PROC: 027135Z Dilation of Coronary Artery, Two Arteries with Two Drug-eluting Intraluminal Devices, Percutaneous Approach (ICD-10-PCS; 2020-12-04 14:00)
DX: I21.09 ST elevation (STEMI) myocardial infarction involving other coronary artery of anterior wall (principal); T82.855A Stenosis of coronary artery stent, initial encounter; I10 Essential (primary) hypertension; I25.10 Atherosclerotic heart disease of native coronary artery without angina pectoris; Z95.5 Presence of coronary angioplasty implant and graft; Z96.651 Presence of right artificial knee joint; Y71.1 Therapeutic (nonsurgical) and rehabilitative cardiovascular devices associated with adverse incidents
CPT/HCPCS: 12345; 80048; 80053; 84484; 85025; 85347; 85378; 85610; 85730; 93005; 93306; 93454; 96372; 99282; C1725; C1769; C1874; C1887; C1894; C8929; C9601; C9606; J1644; J2250; J2405; J3010; J7030; Q9956; Q9967

== ENCOUNTER → 2020-12-18 11:06 | Outpatient (BNVA) | payer MEDICARE, OTHER, SELFPAY | PROVIDERS: PCP Family Medicine; Visit Provider Internal Medicine | DX: I25.119 Atherosclerotic heart disease of native coronary artery with unspecified angina pectoris (principal) | CPT/HCPCS: 80048 ==

== ENCOUNTER 2021-01-10 07:25 | Outpatient (CLI) | payer MEDICARE, OTHER, SELFPAY ==
--- NOTE | 2021-01-10 08:00 | USCV_ITS ---
Devante Manangideon Age: 75 Gender: F : 1945 Exam Date: 01/10/2021 07:54 Ordering Phys: Gab Ramirez M.D ([email or web address]) Technologist: Natividad De La Cruz [place] [facility] [place]: heart disease BP: 123 / 102 HR: 58 Rhythm: Sinus Technical Quality: Adequate MEASUREMENTS (Male / Female) Normal Values 2D ECHO LV Diastolic Diameter PLAX 4.8 cm 4.2 - 5.9 / 3.9 - 5.3 cm LV Systolic Diameter PLAX 3.2 cm LV Chamber Size 3.0 cm IVS Diastolic Thickness 1.3 cm 0.6 - 1.0 / 0.6 - 0.9 cm IVS Systolic Thickness 1.9 cm LVPW Diastolic Thickness 1.9 cm 0.6 - 1.0 / 0.6 - 0.9 cm LVPW Systolic Thickness 2.0 cm RV Chamber Size 2.8 cm LVOT Diameter 2.0 cm LV Ejection Fraction 2D Teich 62.3 % LV Ejection Fraction MOD 2C 8.3 % LV Ejection Fraction 2C AL 5.1 % LA Diameter 2.7 cm LA Width 3.2 cm LA Height 4.1 cm RA Width 3.0 cm RA Height 3.3 cm M-MODE LV Diastolic Diameter MM 4.9 cm 4.2 - 5.9 / 3.9 - 5.3 cm LV Systolic Diameter MM 3.3 cm LV Ejection Fraction MM Teich 62.7 % IVS Diastolic Thickness MM 0.7 cm 0.6 - 1.0 / 0.6 - 0.9 cm IVS Systolic Thickness MM 1.1 cm LVPW Diastolic Thickness MM 0.8 cm 0.6 - 1.0 / 0.6 - 0.9 cm LVPW Systolic Thickness MM 1.4 cm Aortic Annulus Diameter 3.0 cm LA Ao Ratio MM 1.0 MV E Point Septal Separation 0.8 cm FINDINGS Left Ventricle There is a limited echocardiogram performed to assess LV systolic function. LV systolic function is severely reduced. LVEF is 25 to 30%. There is moderate global hypokinesia with akinesis of mid to apical anterolateral, mid to apical anterior and apical sifuentes. Right Ventricle Normal Right Atrium Left Atrium Mitral Valve Aortic Valve Tricuspid Valve Pulmonic Valve Pericardium Aorta CONCLUSIONS LV systolic function is severely reduced with EF of 25 to 30%. There is moderate global hypokinesis with akinesis of mid to apical anterolateral, mid to apical anterior and apical sifuentes. Compared to prior echocardiogram from 12/05/2020, no significant change seen. Gab Ramirez MD (Electronically Signed) Final Date: 10 January 2021 15:15 S
== END 2021-01-10 07:26 | disposition home or self-care (01) ==
PROVIDERS: PCP Family Medicine; Visit Provider Internal Medicine
DX: I25.10 Atherosclerotic heart disease of native coronary artery without angina pectoris (principal)
CPT/HCPCS: 93308

== ENCOUNTER 2021-01-22 16:19 | Observation (INO) | payer MEDICARE, OTHER, SELFPAY ==
[2021-01-21 12:54] VITALS: BMI 31.1
[2021-01-22] VITALS (14 sets, daily range): BP systolic 127–170; BP diastolic 63–94; PULSE 53–68; RESP 14–18; TEMP 36.2–37.1; O2SAT 95–100
--- NOTE | 2021-01-22 | SCC_ITS ---
Procedure Done: AICD implantation 118.2 seconds of fluoroscopic guidance, for a cumulative dose of 15.99 mGy, was provided to Dr. Madden by the radiology department. C-arm images of the chest were saved for the patient's permanent record. [facility]
--- NOTE | 2021-01-22 08:46 | SC_ITS ---
WS: [id number] INTRAOPERATIVE TECHNIQUE: 1 Spot fluoroscopic images for intraoperative purposes. FLUOROSCOPY TIME: 118.2 seconds CLINICAL INFORMATION: AICD implantation COMPARISON: None. FINDINGS: Single lead AICD implantation. SC/C-arm FL for Pacemaker IMPRESSION: Images obtained for intraoperative purposes.
--- NOTE | 2021-01-22 09:43 | ANES.PREANE2 ---
Pre-Anesthetic Assessment Pre-Anesthetic Assessment: Height/Weight: Height 1.57 m Weight 77.111 kg Temp Pulse Resp BP Pulse Ox 97.4 F L 53 L 18 157/80 100 01/22/21 09:03 01/22/21 09:03 01/22/21 09:03 01/22/21 09:03 01/22/21 09:03 Preop Diagnosis: Ischemic cardiomyopathy Proposed Procedure: Operation Date: 01/22/21 10:00 Proposed Procedures p Defibrillator Placement(Not Applicable) - Jasmeet Madden MD Was Beta Bhanu taken within 24 hours: Yes Last intake: Intake Last Liquid Date 01/21/21 Last Liquid Time 22:00 Last Solid Date 01/21/21 Last Solid Time 18:30 Social: Social History: No alcohol and No tobacco Exam: Pre-Anes Outpt Exam: alert, oriented x 3, clear to auscultation bilaterally and regular rate & rhythm Airway: Submandibular: WNL Cervical ROM: WNL MP: 2 Dentition: Full CV/HEM: CV/HEM: CAD, CHF, HTN and [place] (recent 12/19) Comments: EF 25-30% Neuropsych: Neuropsych: Anxiety Anesthetic Plan: ASA status: 3 Anesthesia: MAC Risk of > 500 ml blood loss (7ml/kg in children): No PFSH Anesthesia PFSH: Medical History Coronary artery disease Hypertension ST elevation myocardial infarction (STEMI) S/P successful revascularization Surgical History S/P total knee replacement Social History (Updated 01/21/21 @ 12:48 by Dior Reed) Smoking and tobacco status: never smoked Alcohol intake: never Marital status: Data Anesthesia Cardiac Studies: Echocardiogram 12/05/20
[2021-01-22 09:44] LABS: Add Urine Microscopic? NO
[2021-01-22 09:48] LABS: Bilirubin Urine Neg (Negative); Blood Urine Neg (Negative); Glucose Urine UA Norm (Normal); Ketones Urine Negative (Negative); Nitrate Urine Negative (Negative); Protein Urine Neg (Negative); Urine Appearance Clear (CLEAR); Urine Color Yellow (Yellow); pH Urine 5 (5-7)
[2021-01-22 09:49] LABS: Leukocyte Esterase Urine Negative (Negative); Urobilinogen Urine Norm (Negative)
[2021-01-22 10:01] LABS: Basophils % 0.9 %; Eosinophils # 0.1 10^3/uL (0.0-0.8); Eosinophils % 4.4 %; Hematocrit 41.8 % (37.0-47.0); Hemoglobin 13.6 g/dL (11.5-15.3); Lymphocytes # 0.8 10^3/uL (0.8-4.8); Mean Corpuscular HGB Conc 32.5 g/dL (30.0-36.0); Mean Corpuscular Hemoglobin 29.3 pg (28.0-34.0); Mean Corpuscular Volume 90.1 fL (81-99); Mean Platelet Volume 9.9 fL (7.4-10.4); Monocytes # 0.4 10^3/uL (0.2-0.9); Monocytes % 11.3 %; Neutrophils # 1.87 10^3/uL (1.8-7.7); Neutrophils % 58.4 %; Nucleated Red Blood Cells % 0 %; Platelet Count 233 10^3/cmm (130-400); Red Blood Count 4.64 10^6/uL (4.1-5.3); Red Cell Distribution Width 12.6 % (12.1-15.1); White Blood Count 3.2 10^3/uL (4.0-10.0)
[2021-01-22 10:35] LABS: Anion Gap 12.2 (5-19); Blood Urea Nitrogen 15 mg/dL (8-23); Calcium 9.2 mg/dL (8.5-10.5); Carbon Dioxide 25 mmol/L (22-29); Chloride 107 mmol/L (98-107); Creatinine Clr Calc Pharmacy 59.3183; Glucose 94 mg/dL (65-115); Osmolality Calculated 291 mOsm/kg (285-295); Potassium 4.2 mmol/L (3.5-5.1); Sodium 140 mmol/L (136-145)
[2021-01-22] MEDS: vancomycin 1,000 MG in sodium chloride 0.9% 250 ML 250 MG IV (10:35)
--- NOTE | 2021-01-22 11:04 | W.PM.OPSUD ---
Surgery/Procedure H&P Update DATE OF PROCEDURE: January 22, 2021 DATE H&P PERFORMED: 01/21/21 H&P UPDATE INFORMATION: I have reviewed H&P completed within last 30 days, I have examined patient prior to procedure and No changes to prior documentation CHANGES TO PREVIOUS DOCUMENTATION: Again, increased risk for bleeding related to need to continue Plavix and aspirin because of recent stents was reviewed. She states understanding. She wishes to proceed. PREOP DIAGNOSIS: Ischemic cardiomyopathy PRIMARY INDICATION FOR PROCEDURE: Ischemic cardiomyopathy PLANNED PROCEDURE: Operation Date: 01/22/21 10:00 Proposed Procedures p Defibrillator Placement(Not Applicable) - Jasmeet Madden MD
[2021-01-22] MEDS: vancomycin 1,000 MG SDV 1000 MG IRRIGATION (11:34)
[2021-01-22] MEDS: lidocaine 1% INJ 20 mL INJECTION (11:35)
--- NOTE | 2021-01-22 12:35 | P.OP_ITS ---
Operative Report Date of procedure: January 22, 2021 Pre-op Diagnosis: Ischemic cardiomyopathy Post-op diagnosis: same Procedure Done: AICD implantation Implants: AICD generator and lead Pathology: none sent Surgeon: Jasmeet Madden Anesthesia: MAC and Local Complications: None: Post procedure chest x-ray pending Findings: Fluoroscopy utilized for guidewire, sheath, and subsequent lead positioning. Condition: stable Disposition: PACU Brief History: Ms. Low is a 75-year-old female with ischemic cardiomyopathy with ejection fraction of 25 to 30% despite maximal medical management and prior history for STEMI with subsequent LAD stent rescue. Dr. Ramirez is recommended implantable defibrillator implantation due to her profound cardiomyopathy. Rationale, details and risk of the procedure were carefully and frankly discussed with Ms. Low. Her increased risk related to continue aspirin and Plavix ministration because of recent stenting were frankly discussed. The potential for bleeding complications requiring reexploration, extraction of the device and lead, substantial hematoma, or major bleeding were frankly discussed. She states understanding as well as the need to continue dual antiplatelet therapy. Procedure: Procedure: Ms. Low was taken to the OR suite and placed in the supine position over a shoulder roll. She received conscious sedation with continuous anesthesia monitoring by. Her entire chest was sterilely prepped and draped. 1% lidocaine was infiltrated in the left subclavicular region. While in Trendelenburg position, utilizing modified seldinger technique, a guidewire was placed in the left subclavian vein. This was confirmed in position by fluoroscopy. Next, after infiltration with lidocaine, a subcutaneous pocket was created beginning from the exit point of the guidewire and extending laterally and inferiorly. Cautery was utilized to create the pocket just above the pectoralis musculature. Careful inspection and use of cautery was performed to control all bleeding points, even minor if identified, due to her dual antiplatelet therapy and increased risk for bleeding complications. Hemostasis was confirmed. An antibiotic-soaked sponge was placed in the wound. A dilator and tear-away sheath was placed over the guidewire and advanced under fluoroscopy. Guidewire and dilator were removed. Next using a combination of curved and straight stylettes, the right ventricular lead was placed in position by fluoroscopy. The distal screw was extended. Interrogation was then performed confirming appropriate parameters. The tear-away sheath was then removed and the ventricular lead was sewn to the floor of the subcutaneous pocket. Generator was brought into the field, and after confirmation of hemostasis in the subcutaneous pocket, the lead was connected to the generator with appropriate capture. The entire system was interrogated by fluoroscopy. Lead and generator were secured in the pocket. Sponge and needle count was correct. The wound was then closed in 2 layers of 3-0 Vicryl suture. Skin was reapproximated in a subcuticular manner with 4-0 Monocryl suture. A pressure dressing was applied. The left arm was placed in a sling. Ms. Low had equal breath sounds bilaterally. She was then transferred to the PACU, where chest x-ray is currently pending. I did community health counselor with the family at the completion of the procedure. Following are the specifics of this system: Right ventricular lead is 62 cm and model [id number]. Serial number [id number] Ventricular lead had sensing of 7.7 mV with an impedance of 562 ohms. Threshold was 0.7 V [employer] generator: Model #[id number] Serial # [id number]
--- NOTE | 2021-01-22 13:47 | ANE.PACU2 ---
Inpatient post-anesthesia follow up: Airway intact: Yes Vital signs: Temperature 97.1 F Pulse Rate 63 Respiratory Rate 18 Blood Pressure 142/63 Pulse Oximetry 98 Oxygen Delivery Me thod Room Air Oxygen Flow Rate Fraction of Inspir ed Oxygen Hydration adequate: Yes Nausea and vomiting: No Pain level: 1 Mental status: Baseline
--- NOTE | 2021-01-22 15:06 | SUR.PHASEI ---
PT AWAKE ALERT TAKING SIPS OF SODA AND EATING BRENDAN CRACKERS, LIGHTS OFF PT RESTING WITHOUT COMPLAINT.
[2021-01-22] MEDS: HYDROcodone-acetaminophen 10-325 mg Tablet 1 TAB PO (16:50)
--- NOTE | 2021-01-22 19:30 | PC.NURSE ---
Patient is noted to be sitting in bed without her sling in place. Patient states that is is uncomfortable and that she knows not to use her arm of lift her elbow up.
[2021-01-22] MEDS: gabapentin 300 mg Capsule PO (20:45)
[2021-01-22] MEDS: atorvastatin 40 mg Tablet PO (20:45)
[2021-01-22] MEDS: metoprolol tartrate 50 mg Tablet PO (20:45)
[2021-01-23 04:00] VITALS: BP 136/77; PULSE 55; RESP 16; TEMP 36.9; O2SAT 96
[2021-01-23] MEDS: levoFLOXacin 500 mg Tablet PO (05:15)
--- NOTE | 2021-01-23 07:10 | P.DS_ITS ---
Discharge Providers Date of Admission: 01/22/21 16:19 Date of Discharge: January 23, 2021 Attending Provider at Admission: Jasmeet Madden MD Attending Provider at Discharge: Jasmeet Madden MD Primary Care Provider: Luis Low MD Diagnoses at Discharge Discharge Diagnosis (1) Ischemic cardiomyopathy: Status: Acute Reason for Visit Reason for Visit: defib placement Hospital Course Hospital Course Ms. Low was electively admitted on January 22 for defibrillator implantation. She suffered a ST elevated myocardial infarction earlier this year resulting in rescue PTCA to the LAD. His continue to have depressed ejection fraction between 25 and 30% on most recent echocardiogram. She was electively admitted for planned AICD implantation. This was performed yesterday with single lead without difficulty. She has been observed overnight and rece ived antibiotics. Pressure dressing was removed this morning. There is some modest ecchymosis which may consistent with the need to continue her Plavix and aspirin due to recent stent placement. No substantial swelling, redness, or evidence for fluid collection. She has done well overnight. She will be discharged to home today in stable condition. She will follow-up in heart care services in 2 days for incision inspection and removal of her surgical dressing. I will continue Levaquin for another 3 days. At the time of discharge she is in stable condition. Physical Exam Chest: COMMONS NORMALS: normal inspection of the chest (Mild ecchymosis at incision site, though no evidence for fluid collection) Resp: COMMON NORMALS: normal respiratory effort, No retractions, No use of accessory muscles and clear to auscultation bilaterally EFFORT & INSPECTION: Yes able to speak in complete sentences and Yes symmetric chest movement AUSCULTATION: clear to auscultation bilaterally Cardio: COMMON NORMALS: regular rate, regular rhythm, S1 normal heart sound present, S2 normal heart sound present, No gallops present (Cardio), No murmurs present (Cardio) and No rub (Cardio) RATE: regular rate RHYTHM: regular rhythm HEART SOUNDS: S1 normal heart sound present and S2 normal heart sound present PERIPHERAL PULSES: radial pulses present positive bilateral 2+ Extremity: COMMON NORMALS: no clubbing, cyanosis or edema Discharge Data Data Completed and Pending: Labs from last 24 hours 01/22/21 01/22/21 01/22/21 09:55 09:55 08:55 WBC 3.2 L RBC 4.64 Hgb 13.6 Hct 41.8 MCV 90.1 MCH 29.3 MCHC 32.5 RDW 12.6 Plt Count 233 MPV 9.9 Neut % (Auto) 58.4 Lymph % (Auto) 25.0 Calhoun % (Auto) 11.3 Eos % (Auto) 4.4 Baso % (Auto) 0.9 Neut # (Auto) 1.87 Lymph # (Auto) 0.8 [place]houn # (Auto) 0.4 Eos # (Auto) 0.1 Baso # (Auto) 0.0 Nucleated RBC % (a uto) 0 Nucleated RBCs # 0.0 Sodium 140 Potassium 4.2 Chloride 107 Carbon Dioxide 25 Anion Gap 12.2 BUN 15 Creatinine 0.5 GFR Calculation Not Reportable Glucose 94 Calculated Osmolal ity 291 Calcium 9.2 Urine Color Yellow Urine Appearance Clear Urine pH 5 Ur Specific Gravit y 1.020 Urine Protein Neg Urine Glucose (UA) Norm Urine Ketones Negative Urine Blood Neg Urine Nitrate Negative Urine Bilirubin Neg Urine Urobilinogen Norm Ur Leukocyte Consuelo ase Negative Vitals: Last Vital Signs Temp 98.4 F 01/23/21 04:00 Pulse 55 L 01/23/21 04:00 Resp 16 01/23/21 04:00 BP 136/77 01/23/21 04:00 Pulse Ox 96 01/23/21 04:00 Discharge Plan Discharge Patient Disposition: Home Condition: Stable Prescriptions: New levofloxacin 500 mg Tablet 500 mg PO DAILY@0600 Qty: 3 RF: 0 Continued furosemide 20 mg tablet 20 mg PO BID Qty: 90 RF: 3 metoprolol tartrate 50 mg tablet 50 mg PO BID@0900,2100 Qty: 180 RF: 3 lisinopril 10 mg tablet 20 mg PO DAILY Qty: 90 RF: 3 hydrocodone-acetaminophen 10-325 mg tablet 1 tab PO Q6H PRN (Reason: pain) RF: 0 spironolactone 25 mg Tablet 25 mg PO DAILY PRN (Reason: swelling) RF: 0 zolpidem 5 mg tablet 5 mg PO BEDTIME RF: 0 gabapentin 100 mg capsule 300 mg PO BEDTIME RF: 0 atorvastatin 40 mg Tablet 40 mg PO BEDTIME Qty: 90 RF: 3 clopidogrel 75 mg Tablet 75 mg PO DAILY Qty: 90 RF: 3 aspirin 81 mg Tablet,Delayed Release (Dr/Ec) 81 mg PO DAILY Qty: 90 RF: 3 Discharge Orders: Discharge Order (Routine); Ordered 01/23/21 Ordered By: Jasmeet Madden Referrals: [facility] [Provider Group] - 01/25/21 9:00 am (for incision inspection) Discharge Diet: Usual diet Discharge Activity: Limit activity as instructed Activity Restrictions/Additional Instructions: Remove bandage on Thursday during clinic visit May begin daily showers on January 26 No swimming or tub baths x2 weeks No heavy lifting or pulling x2 weeks Do not raise left arm above eye level for 2 weeks Report any redness, drainage, increased pain, or swelling from incision. Discharge Attestations Time Spent in Discharge Care*: less than 30 min Specific Discharge Activities: educating patient, documenting/other paperwork and evaluating patient/reviewing data Status at Discharge: Cognitive status at discharge: cognitively intact , Behavioral status at discharge: cooperative and independent in ADL's , Functional status at discharge: independent ambulation Overall status at discharge: patient is back to baseline Quality Metrics Clinical Quality Measures During this hospital stay, did patient experience: None Coding Level of Care Code Acute Decorating Kiln Operator for Darío Pizano Diagnoses Ischemic cardiomyopathy I25.5
--- NOTE | 2021-01-23 07:10 | PC.NURSE ---
Bedside report to Emma COLE at this time.
[2021-01-23 07:18] VITALS: BP 163/80; PULSE 60; RESP 18; TEMP 36.7; O2SAT 97
[2021-01-23 07:24] VITALS: BP 163/80; PULSE 60; RESP 18; TEMP 36.7; O2SAT 97
== END 2021-01-23 08:53 | disposition home or self-care (01) ==
LOC: MEDSURG 16:20
PROVIDERS: Admitting Provider Thoracic Surgery (Cardiothoracic Vascular Surgery); PCP Family Medicine; Visit Provider Thoracic Surgery (Cardiothoracic Vascular Surgery)
PROC: 0JH608Z Insertion of Defibrillator Generator into Chest Subcutaneous Tissue and Fascia, Open Approach (ICD-10-PCS; CPT 33249; principal; 2021-01-22 10:00)
DX: I25.5 Ischemic cardiomyopathy (principal); I25.10 Atherosclerotic heart disease of native coronary artery without angina pectoris; I11.0 Hypertensive heart disease with heart failure; I50.9 Heart failure, unspecified; I25.2 Old myocardial infarction; F41.9 Anxiety disorder, unspecified; Z79.82 Long term (current) use of aspirin
CPT/HCPCS: 33249; 36415; 76000; 80048; 81003; 85025; 96365; C1722; C1777; G0378; J2704; J3010; J3370

== ENCOUNTER 2021-01-27 10:50 | Emergency (ER) | payer MEDICARE, OTHER, SELFPAY ==
[2021-01-27 10:57] VITALS: BP 154/56; PULSE 66; RESP 18; TEMP 36.7; O2SAT 98; BMI 30.7
[2021-01-27 11:10] VITALS: BP 154/56; PULSE 65; RESP 15; O2SAT 93
--- NOTE | 2021-01-27 11:19 | W.ED.GENADLT ---
HPI - General Adult General: Chief complaint: General Medical Stated complaint: chest defibrillator needs looked at Time Seen by Provider: 01/27/21 11:07 Source: patient Mode of arrival: ambulatory Limitations: no limitations History of Present Illness: HPI narrative: Patient is a well-appearing 75-year-old female who is status post 5 days from a implantation of [employer] defibrillator and pacemaker due to poor ejection fraction after myocardial infarction last month. She states that she noticed some occasional siren-like noises from her defibrillator that last for approximately 10 seconds at a time over the last couple of days. It occurred 4 times yesterday throughout the day. She states it sounds like a police siren. She denies any complaints associated with this. She has not experienced any chest pain or discomfort. No chest pressure. She does feel dyspneic with exertion but states that has happened since having her heart attack. She denies any fevers or chills. She has not felt any sensation of defibrillation or shock. She spoke with her school guard yesterday who recommended she come in today for interrogation. Onset (ago): day(s) Severity: mild Exacerbating factors: none Associated symptoms: Reports no associated symptoms and short of breath; Deny chest pain, confusion, cough, diaphoresis, decreased appetite, dyspnea, fevers/chills, headache(s), malaise, nausea, rash, palpitations, seizures, syncope, vomiting, weakness or other Treatments prior to arrival: none Review of Systems Const: Denies: fever(s), malaise or diaphoresis Card: Denies: chest pain, palpitations or syncope Resp: Denies: dyspnea GI: Denies: abdominal pain, nausea or vomiting Skin/Breast: Denies: rash Neuro: Denies: headache(s) or confusion PFS ED PFSH: Medical History (Updated 01/27/21 @ 12:30 by Lewis Herrera MD) Coronary artery disease Hypertension Ischemic cardiomyopathy ST elevation myocardial infarction (STEMI) S/P successful revascularization Surgical History S/P total knee replacement Social History (Updated 01/21/21 @ 12:48 by Dior Reed) Smoking and tobacco status: never smoked Alcohol intake: never Marital status: Physical Exam Const: COMMON NORMALS: no acute distress, average body habitus, alert and well nourished GENERAL APPEARANCE: cooperative, comfortable and well kempt; not in distress ORIENTATION/CONSCIOUSNESS: Yes awake HENMT: COMMON NORMALS: normocephalic, atraumatic and Normal external nose present HEAD & SCALP: normocephalic and atraumatic NOSE: Normal external nose present MOUTH: Normal oral and palatal mucosa present Eye: COMMON NORMALS: EOMs intact bilaterally and conjunctivae normal CONJUNCTIVA: Yes conjunctivae normal Neck/C-Spine: GENERAL: Yes normal visual inspection, No tracheal deviation and No submandibular swelling Chest: COMMONS NORMALS: normal inspection of the chest Resp: COMMON NORMALS: normal respiratory effort, No retractions and No use of accessory muscles Cardio: COMMON NORMALS: regular rhythm and Peripheral pulses 2+ throughout RHYTHM: regular rhythm PERIPHERAL PULSES: Peripheral pulses 2+ throughout GI: COMMON NORMALS: Normal to inspection, nondistended, normoactive bowel sounds present, Soft to palpation and non-tender PALPATION: Yes Soft to palpation Extremity: COMMON NORMALS: normal to inspection, full ROM and no pedal edema Neuro: COMMON NORMALS: no focal motor deficits SENSORIUM/ORIENTATION: Yes alert Psych: APPEARANCE: Yes well kempt Skin: COMMON NORMALS: no rashes or lesions noted GENERAL SKIN EXAM: no rashes or lesions noted Course ED course: Patient is a well-appearing 75-year-old female who recently had a pacemaker defibrillator placed due to poor ejection fraction on Thursday. She states that since then she has been hearing alarms coming from the pacemaker. She has no complaints other than this at all. Her pacemaker was interrogated and it turns out that the V. fib and V. tach detectors were all turned off. This was a oversight at placement. I spoke with Yuval with the [employer] rep who suggested getting the tool programmer brought from the cardiac Electric Dolly Operator and turning these functions on. The [employer] rep walked me through turning these 2 functions on and stated that all of the other parameters were correct and functioning properly. He confirmed appropriate parameters and monitoring remotely. Patient will be discharged with recommendation for routine follow-up and has been given return precautions. She again has no physical complaints at all. Vital Signs: Vital signs: Vital Signs Temperature 98.0 F 01/27/21 10:57 Pulse Rate 60 01/27/21 12:20 Respiratory Rate 17 01/27/21 12:20 Blood Pressure 154/56 01/27/21 11:10 Pulse Oximetry 92 01/27/21 12:20 MDM - General Adult MDM Narrative: Medical decision making narrative: Patient's [employer] pacemaker and defibrillator was reprogrammed successfully. Patient will be discharged with recommendation for routine follow-up with her school guard. Discharge Plan Discharge Patient Disposition: Home Clinical Impression: Pacemaker complications Condition: Stable Prescriptions: No Action hydrocodone-acetaminophen 10-325 mg tablet 1 tab PO Q6H PRN (Reason: pain) RF: 0 zolpidem 5 mg tablet 5 mg PO BEDTIME@2200 RF: 0 gabapentin 100 mg capsule 300 mg PO BEDTIME@220 RF: 0 atorvastatin 40 mg tablet 40 mg PO BEDTIME@2200 RF: 0 clopidogrel 75 mg tablet 75 mg PO DAILY@0800 RF: 0 aspirin 81 mg tablet,delayed release (DR/EC) 81 mg PO DAILY@0700 RF: 0 lisinopril 10 mg tablet 20 mg PO DAILY@0700 RF: 0 metoprolol tartrate 50 mg tablet 50 mg PO BID@0700,2200 RF: 0 Discharge Orders: Discharge ED (Routine); Ordered 01/27/21 Ordered By: Lewis Herrera Referrals: Luis Low MD [Primary Care Provider] - Patient Instructions: Implantable Cardioverter Defibrillator (GEN) Coding Level of Care Code ED Chalk Machine Operator for Chg Fwd Exam Comprehensive
[2021-01-27 12:20] VITALS: PULSE 60; RESP 17; O2SAT 92
[2021-01-27 12:41] VITALS: BP 137/75; PULSE 64; RESP 18; O2SAT 97
--- NOTE | 2021-01-27 13:56 | ECG_ITS ---
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 Measurements Intervals [place] Rate: 62 P: 24 TX: 160 QRS: -11 QRSD: 96 T: 144 QT: 401 QTc: 408 Interpretive Statements SINUS RHYTHM INDETERMINATE AXIS INFERIOR MYOCARDIAL INFARCTION , OF INDETERMINATE AGE [40+ ms Q WAVE AND/OR ST/T ABNORMALITY IN II/aVF] ANTEROLATERAL MYOCARDIAL INFARCTION , Old Compared to ECG 12/04/2020 18:15:09 Indeterminate axis now present Atrial abnormality no longer present Myocardial infarct finding still present Electronically Signed On 01-27-2021 17:00:52 WATER RESOURCE SPECIALIST by Gab Ramirez M.D. [email or web address]
== END 2021-01-27 12:42 | disposition home or self-care (01) ==
PROVIDERS: Emergency Provider Student in an Organized Health Care Education/Training Program; PCP Family Medicine
DX: T82.9XXA Unspecified complication of cardiac and vascular prosthetic device, implant and graft, initial encounter (principal); Z79.82 Long term (current) use of aspirin; Z79.02 Long term (current) use of antithrombotics/antiplatelets; I25.10 Atherosclerotic heart disease of native coronary artery without angina pectoris; I10 Essential (primary) hypertension; I25.2 Old myocardial infarction
CPT/HCPCS: 12345; 93005; 99283

== ENCOUNTER 2022-04-10 13:37 | Outpatient (CLI) | payer MEDICARE, OTHER, SELFPAY ==
--- NOTE | 2022-04-10 13:54 | MM_ITS ---
WS: [id number] BILATERAL 3D TOMOSYNTHESIS DIGITAL SCREENING MAMMOGRAPHY WITH CAD CLINICAL INFORMATION: SCREENING HISTORY: Screening mammogram. No current complaints. COMPARISON: TECHNIQUE: Bilateral CC and MLO views. FINDINGS: Scattered fibroglandular densities bilaterally. A few incidental punctate and lucent centered calcifi cations. No suspicious focal mass, asymmetry, calcifications, or architectural distortion. No evidenc [place] of malignancy. MM/[place] [id number] IMPRESSION: BI-RADS: 2-Benign FOLLOW UP: 1 Year Follow-up Recommend return to annual screening mammography.
== END 2022-04-10 13:38 | disposition home or self-care (01) ==
LOC: RAD 13:38
PROVIDERS: PCP Family Medicine; Visit Provider Nurse Practitioner Family
DX: Z12.31 Encounter for screening mammogram for malignant neoplasm of breast (principal)
CPT/HCPCS: 77063; 77067

== ENCOUNTER → 2022-07-31 08:16 | Outpatient (BNVA) | payer MEDICARE, OTHER, SELFPAY | PROVIDERS: PCP Family Medicine; Visit Provider Family Medicine | DX: N39.0 Urinary tract infection, site not specified (principal); F32.A Depression, unspecified; I25.119 Atherosclerotic heart disease of native coronary artery with unspecified angina pectoris; I10 Essential (primary) hypertension; N13.9 Obstructive and reflux uropathy, unspecified | CPT/HCPCS: 81000; 87086 ==

== ENCOUNTER → 2022-08-14 09:01 | Outpatient (BNVA) | payer MEDICARE, OTHER, SELFPAY | PROVIDERS: PCP Family Medicine; Visit Provider Family Medicine | DX: N39.0 Urinary tract infection, site not specified (principal) | CPT/HCPCS: 81000; 87086 ==

== ENCOUNTER → 2022-11-03 07:57 | Outpatient (BNVA) | payer MEDICARE, OTHER, SELFPAY | PROVIDERS: PCP Family Medicine; Visit Provider Clinical Nurse Specialist Adult Health | DX: R35.0 Frequency of micturition (principal) | CPT/HCPCS: 81000; 87077; 87086; 87184 ==

== ENCOUNTER → 2023-05-18 12:30 | Outpatient (BNVA) | payer MEDICARE, OTHER, SELFPAY | PROVIDERS: PCP Family Medicine; Visit Provider Family Medicine | DX: N39.0 Urinary tract infection, site not specified (principal); M19.90 Unspecified osteoarthritis, unspecified site; F32.A Depression, unspecified; I10 Essential (primary) hypertension | CPT/HCPCS: 81000 ==

== ENCOUNTER → 2023-08-17 11:12 | Outpatient (BNVA) | payer MEDICARE, OTHER, SELFPAY | PROVIDERS: PCP Family Medicine; Visit Provider Family Medicine | DX: M19.90 Unspecified osteoarthritis, unspecified site (principal); F32.A Depression, unspecified; I25.10 Atherosclerotic heart disease of native coronary artery without angina pectoris; I10 Essential (primary) hypertension; Z13.6 Encounter for screening for cardiovascular disorders; I25.119 Atherosclerotic heart disease of native coronary artery with unspecified angina pectoris | CPT/HCPCS: 80053; 80061; 85025 ==

== ENCOUNTER → 2024-09-12 09:25 | Outpatient (BNVA) | payer MEDICARE, OTHER, SELFPAY | PROVIDERS: PCP Family Medicine; Visit Provider Family Medicine | DX: I10 Essential (primary) hypertension (principal); I25.119 Atherosclerotic heart disease of native coronary artery with unspecified angina pectoris; M19.90 Unspecified osteoarthritis, unspecified site | CPT/HCPCS: 80053; 80061 ==

== ENCOUNTER → 2025-11-06 09:15 | Outpatient (BNVA) | payer MEDICARE, OTHER, SELFPAY | PROVIDERS: PCP Family Medicine; Visit Provider Family Medicine | DX: I25.119 Atherosclerotic heart disease of native coronary artery with unspecified angina pectoris (principal); I10 Essential (primary) hypertension; M19.90 Unspecified osteoarthritis, unspecified site; G62.9 Polyneuropathy, unspecified; E03.9 Hypothyroidism, unspecified | CPT/HCPCS: 80053; 80061; 82306; 84443; 85025 ==